=== PATIENT | male | born 1945 | race Caucasian/White ===

== ENCOUNTER 2017-04-23 09:58 | Outpatient (CLI) | payer MEDICARE ==
--- NOTE | 2017-04-23 11:50 | RAD ---
AP AND OBLIQUE VIEWS LEFT RIBS: History: Fall with persistent left sided rib pain. FINDINGS: The patient has had a previous reverse left shoulder arthroplasty. Aortic endovascular stent graft is in place. No evidence of acute left sided rib fractures seen. IMPRESSION: No evidence of acute left rib fracture seen. POS: [facility]
== END 2017-04-23 09:59 | disposition home or self-care (01) ==
LOC: SCSRAD 09:58
PROVIDERS: ATTEND Family Medicine
DX: R07.81 Pleurodynia (principal)
CPT/HCPCS: 36415; 80053; 80061

== ENCOUNTER 2017-06-10 12:18 | Outpatient (CLI) | payer MEDICARE ==
--- NOTE | 2017-06-10 15:37 | CT ---
CTA OF THE CHEST AND ABDOMEN UTILIZING IV CONTRAST AND 3D IMAGING: Comparison: 12-05-16, CT thorax 01-26-16. FINDINGS: The scattered centrilobular and paraseptal emphysema is largely stable. The focal irregular nodular g round glass opacity involving the posterior segment of the right upper lobe measures 2.4 x 1.6 cm whe reas previously it measured 2.0 x 1.4 cm. In 2016, this ground glass nodular opacity measured 2.4 x 1 .6 cm which is roughly stable to the current examination. No new suspicious focal nodule is evident. Shoddy appearing lymph nodes within the mediastinum are largely stable to the most recent examination . One of the largest is seen within the precarinal region measuring 1.3 cm whereas it previously madeline ured 1.1 cm. The subcarinal lymph node measures 1.7 cm which is stable to the prior exam. No calcifie d lymph nodes within the left hilar region. There is a calcified granuloma in the left lower lobe. There is scattered coronary artery and thoracic aortic calcifications. The ascending thoracic aorta measures 3.9 cm which is stable to the prior exam. The aortic arch measu res 3.9 cm which is stable to the prior exam. The endovascular stent originating just posterior to th e left common carotid artery origin is unchanged in position. The aneurysmal dilatation of the descen ding thoracic aorta on image 52 of series 2 is stable, measuring 6.2 x 5.l cm whereas it measured 6.6 x 5.7 cm. This is a [id number] measurement on the current examination as well as a [id number] me asurement on the prior exam dated 12-05-16. The thoracic aorta at the level of the hiatus measures 3.7 cm which is relatively stable to the prior exam. The suprarenal abdominal aorta measures 3.3 cm which is stable to the prior exam. The aorta at the le sherita of the renal arteries measures 2.9 cm which is stable. The infrarenal abdominal aorta just proxim al to the stent measures 3.6 cm which is slightly more prominent than on the prior exam where it madeline ured 3.4 cm. The aneurysm excluded by the infrarenal abdominal aortic stent measures 2.8 cm which is stable. The bi-iliac stent components remain patent. The aneurysmal dilatation of the left common kathy ac artery measures 2.1 cm whereas on the prior it measured 2 cm. The right common iliac artery just d istal to the stent measures 1.6 cm whereas it previously measured 1.6 cm. The external and internal i liac arteries appear widely patent within their visualized course. The celiac artery remains patent. There is mild atherosclerotic narrowing involving the origin of the SMA is stable. There has been interval worsening in the narrowing involving the origin of the left r enal artery, now moderate in severity, best seen on Image 73 of the coronal series and Image 105 of t he sagittal series. There is some mild luminal narrowing involving the proximal right renal and its o rigin. The JOSH artery is excluded and demonstrates some retrograde opacification through collateraliz ation. The gallbladder is surgically absent. Calcified granuloma within the liver appears similar. Right rachelle al cyst is stable. Left kidney and adrenal glands appear within normal limits. No enlarged lymph node s are evident. Small thoracolumbar scoliosis is similar. Scattered degenerative and osteoarthritic ch betty is present. No definite acute osseous abnormality is evident. There are bilateral shoulder repla cements that are partially imaged. IMPRESSION: 1. 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 The abdominal aorta just cephalad to the infrarenal abdominal aortic aneurysm endograft stent now measures 3.6 cm where it pr eviously measured up to 3.4 cm. This is likely within normal limits when accounting for slight differ ences in ambulation and technique. 2. Moderate left renal artery origin stenosis due to partially calcified atherosclerotic plaque. This has progressed since the comparison on 12-05-16. 3. Mild right renal artery origin and proximal right renal artery atherosclerotic irregularity. 4. Stable mild atherosclerotic narrowing involving the origin of the SMA. 5. Stable emphysematous change. 6. The nodular ground glass opacity within the right upper lobe has been stable since 01-26-16. Would recommend a short term CT follow up in January 2018 to evaluate stability. 7. Findings of prior granulomatous disease. 8. Stable right renal cyst. 9. Cholecystectomy. POS: [facility]
[2017-06-10] MEDS ORDERED: Iopamidol 370 76% 100 ML VIAL ONE (17:32)
== END 2017-06-10 12:19 | disposition home or self-care (01) ==
LOC: CT 12:18
PROVIDERS: ATTEND Thoracic Surgery (Cardiothoracic Vascular Surgery)
DX: I71.6 Thoracoabdominal aortic aneurysm, without rupture (principal); I70.1 Atherosclerosis of renal artery; I77.1 Stricture of artery; R91.1 Solitary pulmonary nodule; N28.1 Cyst of kidney, acquired; Z90.49 Acquired absence of other specified parts of digestive tract
CPT/HCPCS: 71275; 74175

== ENCOUNTER 2018-03-05 12:51 | Outpatient (CLI) | payer MEDICARE ==
--- NOTE | 2018-03-05 14:40 | CT ---
NONCONTRAST CT THORAX: Date: 03-05-18 History: Lung nodule. Shortness of breath and COPD. Comparison: CT angiogram of the chest on 06-10-17 and 12-25-16. FINDINGS: Post-surgical changes related to placement of a thoracic aortic stent graft are noted. Ascending thor acic aorta measures 4.4 cm. Greatest transverse dimension of the proximal ascending thoracic aorta me asures 5.1 cm which is similar in size to prior exam. Dense vascular calcifications are again seen in the coronary arteries. There are mediastinal lymph nodes again seen which are overall nonspecific. The larger measured subco rhina lymph node is smaller in size ===== punctate calcification seen which may relate to prior granu lomatous disease. Calcified right hilar lymph nodes are present. Lack of intravenous contrast does li shemar evaluation for lymphadenopathy as well as vascular structures. The spiculated appearing mass in the posterior aspect right upper lobe is again seen and measures 3.4 cm craniocaudal x 2.8 cm transverse x 1.5 cm AP and measured 2.8 cm craniocaudal x 2.4 cm transverse x 1.6 cm AP on study of 06-10-17. There is a punctate nodular density seen within the posterior aspect of the right lower lobe which wa s also seen on prior and may represent a punctate calcified granuloma. There is a calcified granuloma in the superior segment of the left lower lobe. No other noncalcified pulmonary nodule or mass is se en and there is no pleural effusion identified. Post-surgical changes related to cholecystectomy are noted. There is partial visualization of an abdo deandre aortic endograft. There is incomplete imaging of a hypodense cystic lesion in the lower pole ri ght kidney likely related to a cyst. No other interval change from prior exam. Bilateral glenohumeral prostheses are present. IMPRESSION: 1. Mild interval enlargement of the spiculated mass posterior right upper lobe. 2. Punctate nodule in the right lower lobe probably related to a tiny calcified granuloma. There is a stable calcified granuloma in the left lower lobe. 3. Evidence of COPD. 4. Aortic stent grafts involving the thoracic aorta and visualized upper abdominal aorta. Measurement s of the descending thoracic aorta are similar to prior exam. 5. Remainder of incidental findings are as described above. POS: [facility]
== END 2018-03-05 12:52 | disposition home or self-care (01) ==
LOC: CT 12:51
PROVIDERS: ATTEND Internal Medicine
DX: R91.1 Solitary pulmonary nodule (principal); R91.8 Other nonspecific abnormal finding of lung field; J84.10 Pulmonary fibrosis, unspecified; J44.9 Chronic obstructive pulmonary disease, unspecified; N28.89 Other specified disorders of kidney and ureter; Z95.2 Presence of prosthetic heart valve; Z90.49 Acquired absence of other specified parts of digestive tract; Z98.890 Other specified postprocedural states; Z95.828 Presence of other vascular implants and grafts
CPT/HCPCS: 71250

== ENCOUNTER 2018-03-20 08:21 | Day surgery (SDC) | payer MEDICARE ==
[2018-03-19 09:55] VITALS: BMI 24.0
[2018-03-20 08:32] LABS: #Basophils 0.1 thou/uL (0.0-0.2); #Eosinphils 0.2 thou/uL (0.0-0.7); #Lymphocytes 1.2 thou/uL (1.20-3.40); #Monocytes 0.6 thou/uL (0.11-0.59); #Neutrophils 4.4 thou/uL (1.40-6.50); %Basophils 1.1 % (0.0-1.0); %Eosinophils 2.9 % (0.0-10.0); %Lymphocytes 18.8 % (21.0-51.0); %Monocytes 9.1 % (0.0-10.0); %Neutrophils 68.1 % (42.0-75.0); Hemoglobin 13.7 g/dL (14.0-18.0); Mean Corpuscular HGB CONC 32.6 g/dL (32.0-36.0); Mean Corpuscular Hemoglobin 30.5 pg (27.0-31.0); Mean Corpuscular Volume 93.6 fL (78.0-98.0); Mean Platelet Volume 6.8 fL (7.4-10.4); Platelet Count 155 thou/uL (130-400); RBC Distribution Width 13.7 % (11.5-14.5); White Blood Cell (WBC) Count 6.5 thou/uL (4.8-10.8)
[2018-03-20 09:00] LABS: Prothrombin Time 12.9 SEC (12.0-14.7)
[2018-03-20 09:54] VITALS: BP 141/71; TEMP 97.3
[2018-03-20] MEDS ORDERED: Midazolam HCl 2 mg/2 ml Vial ONE (10:04)
[2018-03-20] MEDS ORDERED: Fentanyl 100 MCG/2 ML VIAL ONE (10:04)
[2018-03-20] MEDS ORDERED: Lidocaine 1% PF 5 ML VIAL ONE (10:05)
[2018-03-20] MEDS ORDERED: Sodium Bicarbonate 2.5 MEQ/5 ML VIAL ONE (10:05)
--- NOTE | 2018-03-20 11:55 | RAD ---
INSPIRATORY AND EXPIRATORY CHEST RADIOGRPAH SERIES: INDICATION: Postoperative chest radiograph status post biopsy of right upper lobe mass. FINDINGS: There is no evidence of a significant pneumothorax. Scattered interstitial prominence is seen. Ther e is stable postoperative change of endovascular graft of the thoracic aorta. IMPRESSION: No post procedural pneumothorax of significance is visualized. POS: [facility]
--- NOTE | 2018-03-20 13:31 | CT ---
CT GUIDED PERCUTANEOUS BIOPSY OF A RIGHT UPPER LOBE SPICULATED PULMONARY NODULE WHICH IS SLIGHTLY INC REASED IN SIZE: Technique: The procedure including risks and complications were discussed with the patient and informed consent was obtained. The patient was placed on the CT scan table in the prone position. Limited noncontraste d CT scan was obtained through the level of the mass in the posterior aspect of the right upper lobe. An area was marked and then meticulously prepped and draped in the usual sterile fashion. Skin and subcutaneous tissues were infiltrated with buffered 1% Lidocaine for local anesthesia. Small skin incision was made. A 17 gauge guide needle was advanced followed by three axial [address] images. This was repeated until the needle was placed just within the peripheral aspect of the left upper lobe spiculated lesi on. A total of three 18 gauge core needle biopsy specimens were obtained utilizing coaxial technique. Pathologist was available for evaluation of the specimens and noted atypical cells on the specimen. The needle was removed, and hemostatis was achieved with direct pressure. Post contrast CT images dem onstrate no evidence of a pneumothorax or evidence of hematoma. The patient was transported to radiology nurses holding area for further monitoring. Inspiratory/expi ratory chest x-ray was performed which also did not demonstrate evidence of a pneumothorax. IMPRESSION: 1. Technically successful CT guided percutaneous biopsy of a spiculated nodule/mass in the right uppe r lobe. A total of three 18 gauge core needle biopsy specimens were obtained. Pathology is currently pending. 2. Chronic lung changes and evidence of emphysematous changes. 3. Partial visualization of thoracic aortic stent graft. POS: [facility]
--- NOTE | 2018-03-20 13:57 | RAD ---
FRONTAL CHEST PROJECTION WITH INSPIRATORY AND EXPIRATORY IMAGING: HISTORY: Status post right lung biopsy. Postoperative evaluation. FINDINGS: There is no post procedural pneumothorax. Evidence of CHF with edema is present, similar appearing. IMPRESSION: No evidence of a significant post procedural pneumothorax, status post right lung biopsy. POS: [facility]
== END 2018-03-20 13:25 | disposition home or self-care (01) ==
LOC: CT 08:21
PROVIDERS: ATTEND Internal Medicine
PROC: 0BDC4ZX Extraction of Right Upper Lung Lobe, Percutaneous Endoscopic Approach, Diagnostic (ICD-10-PCS; principal; 2018-03-20)
DX: C34.11 Malignant neoplasm of upper lobe, right bronchus or lung (principal); G47.33 Obstructive sleep apnea (adult) (pediatric); K21.9 Gastro-esophageal reflux disease without esophagitis; J44.9 Chronic obstructive pulmonary disease, unspecified; Z79.82 Long term (current) use of aspirin; Z79.899 Other long term (current) drug therapy
CPT/HCPCS: 32405; 36415; 71045; 77002; 85025; 85610; 85730; 88305; 88313; 88333; 88341; 88342; J2001; J2250; J3010

== ENCOUNTER 2018-04-04 07:44 | Outpatient (CLI) | payer MEDICARE ==
--- NOTE | 2018-04-04 12:39 | PET ---
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 Exam is requested for initial staging. CORRELATION: CT chest from 03/05/2018. TECHNIQUE: PET scanning with CT attenuation correction was performed from the base of the brain through the prox imal thighs following the intravenous administration of 12 millicuries F18 fluorodeoxyglucose in the right antecubital fossa. Imaging was performed after an uptake interval of 51 minutes. FINDINGS: There is hypermetabolic activity in the right upper lobe lung mass, noted on the CT scan, with an SUV of 8.3. No additional hypermetabolic pulmonary nodules are seen. The prominent mediastinal lymph n odes demonstrate no abnormal FDG localization, and have a maximum SUV of 2.2. No deidre hypermetaboli sm is seen in the hilar, axillary, neck, abdomen, or pelvis regions. There are foci of increased uptake at the anterior aspect of the left fifth and sixth ribs, with SUVs of 3.5 and 2.7, respectively. The pattern of uptake suggests these are most likely due to trauma ra ther than metastatic disease. No other hypermetabolic skeletal lesions are seen. No hypermetabolic liver or adrenal lesions are identified. There is physiologic activity in the GI and tracts and heart and in the visualized portions of the brain. CT scan used for attenuation correction demonstrates no evidence of pleural effusions or ascites. Th ere are postop changes of bilateral shoulder arthroplasties. A thoracic aortic stent graft is seen. There is a right-sided renal cyst. An aortoiliac stent graft is also seen. IMPRESSION: 1. Right upper lobe lung malignancy. 2. Increased focal uptake in the left anterior fifth and sixth ribs, most likely due to trauma, thou gh metastatic disease cannot be completely excluded. POS: [facility]
== END 2018-04-04 07:45 | disposition home or self-care (01) ==
LOC: PET 07:44
PROVIDERS: ATTEND Internal Medicine Hematology & Oncology
DX: C34.11 Malignant neoplasm of upper lobe, right bronchus or lung (principal)
CPT/HCPCS: 78815; A9552

== ENCOUNTER 2018-04-10 07:29 | Outpatient (CLI) | payer MEDICARE | END 2018-04-10 07:30 | disposition home or self-care (01) | LOC: CP 07:29 | PROVIDERS: ATTEND Internal Medicine | DX: C34.90 Malignant neoplasm of unspecified part of unspecified bronchus or lung (principal) | CPT/HCPCS: 94010; 94729 ==

== ENCOUNTER 2018-04-21 05:54 | Inpatient (IN) | payer MEDICARE ==
[2018-04-21] MEDS ORDERED: CEFAZOLIN 2 GM/50 ML BAG ONE (06:38)
[2018-04-21 06:44] LABS: Hemoglobin 13.6 g/dL (14.0-18.0); Mean Corpuscular HGB CONC 32.3 g/dL (32.0-36.0); Mean Corpuscular Hemoglobin 30.3 pg (27.0-31.0); Mean Corpuscular Volume 93.8 fL (78.0-98.0); Mean Platelet Volume 7.5 fL (7.4-10.4); Platelet Count 159 thou/uL (130-400); RBC Distribution Width 13.8 % (11.5-14.5); White Blood Cell (WBC) Count 7.2 thou/uL (4.8-10.8)
[2018-04-21 07:01] LABS: Anion Gap 13 mmol/L (10-20); BUN (Urea Nitrogen) 11 mg/dL (8.4-25.7); Calc. Creatinine Clearance 85 mL/min (70-130); Calcium 8.9 mg/dL (7.8-10.44); Carbon Dioxide 25 mmol/L (23-31); Chloride 106 mmol/L (98-107); Estimated GFR-MDRD 87; Glucose 107 mg/dL (83-110); Potassium 3.8 mmol/L (3.5-5.1); Sodium 140 mmol/L (136-145)
[2018-04-21] MEDS ORDERED: Atropine Sulfate 0.4 mg/1 ml Vial ONE (07:14)
[2018-04-21] MEDS ORDERED: Bupivacaine 0.25% HCL 30 ML VIAL ONE (07:14)
[2018-04-21] MEDS ORDERED: Fentanyl/Bupivacaine 100 ML EPIDURAL SCH (07:30)
[2018-04-21] MEDS ORDERED: Naloxone HCl 0.4 mg/ml Vial IV PRN (07:30)
[2018-04-21] MEDS ORDERED: Promethazine HCl 25 MG SUPP PR PRN (07:30)
[2018-04-21] MEDS ORDERED: Bupivacaine 0.25% 10 ML VIAL EPIDURAL PRN (07:30)
[2018-04-21] MEDS ORDERED: Naloxone HCl 0.4 mg/ml Vial IVP PRN (07:30)
[2018-04-21] MEDS ORDERED: HYDROcodone/Acetaminophen 5/325 mg Tablet PO PRN ×3 (07:30→12:38)
[2018-04-21] MEDS ORDERED: diphenhydrAMINE 25 MG CAP PO PRN (07:30)
[2018-04-21] MEDS ORDERED: traMADol HCl 50 MG TAB PO PRN ×2 (07:30)
[2018-04-21] MEDS ORDERED: Zolpidem Tartrate 5 MG TAB PO PRN (07:30)
[2018-04-21] MEDS ORDERED: Promethazine HCl 25 MG/ML VIAL IM PRN (07:30)
[2018-04-21] MEDS ORDERED: diphenhydrAMINE 50 MG/ML VIAL IM PRN (07:30)
[2018-04-21] MEDS ORDERED: Hydrocerin (Eucerin) Cream 120 gm Jar TOP PRN (07:30)
[2018-04-21] MEDS ORDERED: diphenhydrAMINE 50 MG/ML VIAL IVP PRN (07:30)
[2018-04-21] MEDS ORDERED: Betamet Acet/Betamet Na Ph 30 MG/5 ML VIAL ONE (08:03)
--- NOTE | 2018-04-21 10:50 | OP ---
DATE OF PROCEDURE: 04/21/2018 PREOPERATIVE DIAGNOSIS: Right upper lobe lung cancer. PROCEDURE: Right upper lobectomy. SURGEON: Arnaud Shaffer M.D. ANESTHESIA: General. ESTIMATED BLOOD LOSS: 250. PROCEDURE IN DETAIL: After adequate anesthesia had been obtained with a double-lumen endotracheal tu be, the patient was placed in the left lateral decubitus position with padding. Scope was inserted i n the mid axillary line and chest examined. Lung was not fully deflated; however, it was elected at this time to go ahead and perform a thoracotomy and the chest was then entered through the sixth inte rcostal space, as thoracoscopy eubanks this appeared to be the best position for the lobectomy. Upon en tering the chest, fissures were noted to be incomplete in the major fissure and nonexistent in the mi nor fissure. The lung was thick and never did completely compress and become totally atelectatic. P leura was taken down anteriorly, superiorly and posteriorly, taking care to stay away from the phreni c nerve. Pulmonary artery branch was initially controlled with a stapler at which time, it was elect ed to go ahead and divide the right upper lobe bronchus, which was done with a green load after ensur ing good filling of the lower and middle lobe. This allowed better access to the remaining upper lob e branches of the pulmonary artery, which were divided in separate firings. The vein to the upper lo be was then divided with the firing and at that time major and minor fissures were completed with mul tiple green loads. Specimen was removed and multiple dark firm nodes were removed and sent for perma nent section. There was no adenopathy in the R4 region and this was not molested. Two chest tubes w ere then placed and a large pleural flap was mobilized, following which ribs were reapproximated with double stranded catgut sutures x3 in a [id number]-[id number] fashion with each one. Muscle layers, which had been divided were reapproximated, although no muscle was actually divided, it was just mobilized. Subcutaneous tissue and skin were closed in layers and the patient is to be taken to the ICU in gua rded condition.
[2018-04-21] MEDS ORDERED: Dexmedetomidine 200 MCG/2 ML VIAL ONE (10:56)
[2018-04-21] MEDS ORDERED: Fentanyl/Bupivacaine 100 ML EPIDURAL ONE (11:00)
[2018-04-21] MEDS ORDERED: Fentanyl 100 MCG/2 ML VIAL SLOW IVP PRN (12:38)
[2018-04-21] MEDS ORDERED: Nitroglycerin 50 MG/250 ML BOT 250 ML IVPB PRN (12:38)
[2018-04-21] MEDS ORDERED: Phenylephrine 10 MG/NS 250 ML 250 ML IVPB PRN (12:38)
[2018-04-21 12:44] VITALS: BMI 24.5
[2018-04-21] MEDS: Sodium Chloride 0.9% 1,000 ML IV SCH ×2 (13:51→18:56)
[2018-04-21] MEDS: CEFAZOLIN 2 GM/50 ML BAG IVPB SCH ×2 (13:51→21:39)
[2018-04-21] MEDS ORDERED: Glycopyrrolate 0.2 MG/ML 5 ML SYRINGE ONE (15:12)
[2018-04-21] MEDS ORDERED: PROPOFOL 200 MG/20 ML VIAL ONE (15:12)
[2018-04-21] MEDS ORDERED: Lidocaine 1% PF 5 ML VIAL ONE (15:12)
--- NOTE | 2018-04-21 15:27 | RAD ---
RADIOGRAPH CHEST 1 VIEW: Date: 04/21/2018 Time: 12:45 p.m. HISTORY: A 72-year-old male, status post thoracotomy. COMPARISON: 03/20/2018 FINDINGS: There are two new right-sided chest tubes, one at the right base and one with the distal tip overlyin g the medial upper right chest. There is a new, approximately 20% right apical pneumothorax. There is a new focal, moderate sized air space opacity in the right mid lung zone. There are new, more dif fuse interstitial/alveolar infiltrates throughout the left mid and lower lung zones. Again noted is the long endovascular stent graft throughout the posterior aspect of the aortic arch and entire desce nding thoracic aorta. No cardiomegaly. New subcutaneous emphysema in the right chest wall. IMPRESSION: 1. Two new right-sided thoracostomy tubes. 2. Small right apical pneumothorax. 3. New air space density at the right mid lung field. 4. Diffuse new interstitial densities throughout much of the left lung. 5. Stent endograft throughout almost the entire thoracic aorta. SHANITA [] POS: [facility]
--- NOTE | 2018-04-21 16:14 | CON ---
DATE OF CONSULTATION: 04/21/2018 HISTORY OF PRESENT ILLNESS: Mr. Alejo is a 72-year-old male who underwent a lobectomy today for lung mass. He says he is feeling comfortable after surgery. He denies being in any pain. He has not been in the hospital since 2013. At that time, he was seen by Dr. Gonzáles and underwent right biceps tenodesis and right shoulder replacement. 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 PAST SURGICAL HISTORY: Remarkable for cholecystectomy, abdominal aortic aneurysm repair, right inguinal herniorrhaphy and left elbow bursa removal. ALLERGIES: Reports intolerance to FLU SHOTS and STATINS. FAMILY HISTORY: Positive for vascular disease, depression and diabetes. SOCIAL HISTORY: He is a nonsmoker, stopped in 2012. He is a nondrinker, nondrug user. MEDICATIONS: Reviewed. REVIEW OF SYSTEMS: 10 point system review completed; otherwise negative. PHYSICAL EXAMINATION: GENERAL: He is in no distress. He is supine flat in bed. VITAL SIGNS: His heart rate is in the 60s, blood pressure 141/67, respiratory rates in the teens, oximetry is in the high 90s. HEENT: His extraocular movements are intact. NECK: Supple. LUNGS: Clear. HEART: Regular rhythm. S1 and S2 are normal. ABDOMEN: Soft and nontender. EXTREMITIES: No clubbing, cyanosis or edema. LABORATORY DATA: White count 7.2, hemoglobin 13.6, platelets 159,000. Electrolytes are normal. IMPRESSION AND PLAN: Status post lobectomy, clinically stable. Dr. Morales will assume care in the morning. This is a 50-minute consult, with greater than 50% of the time spent on the unit coordinating care. STEPHEN
[2018-04-21 18:28] LABS: Hemoglobin 12.2 g/dL (14.0-18.0)
[2018-04-21] MEDS: Ondansetron PF 4 MG/2 ML Vial IVP PRN (18:54)
[2018-04-21] MEDS ORDERED: Enoxaparin Sodium 40 MG/0.4 ML SYRINGE SC SCH (21:00)
[2018-04-21] MEDS: Atorvastatin Calcium 40 MG TAB PO SCH (21:39)
[2018-04-22] MEDS: CEFAZOLIN 2 GM/50 ML BAG IVPB SCH (05:16)
[2018-04-22] MEDS: Ketorolac Tromethamine 30 MG/ML VIAL IVP PRN ×3 (05:27→17:28)
[2018-04-22] MEDS: HYDROcodone/Acetaminophen 5/325 mg Tablet PO PRN ×4 (05:27→17:29)
[2018-04-22 06:18] LABS: #Eosinphils 0.1 thou/uL (0.0-0.7); #Lymphocytes 0.9 thou/uL (1.20-3.40); #Monocytes 0.7 thou/uL (0.11-0.59); #Neutrophils 7.6 thou/uL (1.40-6.50); %Basophils 0.5 % (0.0-1.0); %Eosinophils 1.6 % (0.0-10.0); %Lymphocytes 9.4 % (21.0-51.0); %Monocytes 7.5 % (0.0-10.0); %Neutrophils 81.1 % (42.0-75.0); Mean Corpuscular Hemoglobin 30.2 pg (27.0-31.0); Mean Corpuscular Volume 94.6 fL (78.0-98.0); Mean Platelet Volume 7.4 fL (7.4-10.4); Platelet Count 149 thou/uL (130-400); RBC Distribution Width 13.9 % (11.5-14.5); Red Blood Cell (RBC) Count 3.65 mill/uL (4.70-6.10); White Blood Cell (WBC) Count 9.4 thou/uL (4.8-10.8)
[2018-04-22 06:29] LABS: Anion Gap 9 mmol/L (10-20); BUN (Urea Nitrogen) 13 mg/dL (8.4-25.7); Calc. Creatinine Clearance 84 mL/min (70-130); Calcium 7.9 mg/dL (7.8-10.44); Carbon Dioxide 25 mmol/L (23-31); Chloride 107 mmol/L (98-107); Estimated GFR-MDRD 83; Glucose 125 mg/dL (83-110); Potassium 4.1 mmol/L (3.5-5.1); Sodium 137 mmol/L (136-145)
[2018-04-22] MEDS: Ondansetron PF 4 MG/2 ML Vial IVP PRN (09:29)
--- NOTE | 2018-04-22 09:38 | RAD ---
PORTABLE AP CHEST XRAY: DATE: 04/22/2018. HISTORY: Post thoracotomy. Followup evaluation. COMPARISON: 04/21/2018. FINDINGS: Two right-sided thoracostomy tubes remain in place. The right apical pneumothorax persists but is sm aller in size. The airspace opacity within the right upper lobe has increased with more dense area o f consolidation now present. Increased interstitial opacities are seen at each lung base and in the left mid lung zone, similar to prior exam. Cardiac silhouette is stable in size. Aortic stent graft is again noted in the thoracic aorta. Bilateral shoulder prostheses are present. Subcutaneous emph ysema is again seen along the right lateral chest. IMPRESSION: 1. Two right-sided thoracostomy tubes overall similar in position with mild interval decrease in rig ht apical pneumothorax. 2. Interval increase in dense opacity/consolidation in the right upper lobe. 3. Increased interstitial densities at each lung base and left mid lung zone similar to prior exam. POS: [facility]
[2018-04-22] MEDS: Bupivacaine 10 ML in Sodium Chloride 0.9% 90 ML EPIDURAL SCH ×2 (09:51→20:38)
--- NOTE | 2018-04-22 10:12 | PRG ---
DATE OF SERVICE: 04/22/2018 SERVICE: Pulmonary Medicine. INTERVAL HISTORY: The patient had a rough night last night. He denies any current fevers or chills. That being said, he is having increasing discomfort. This morning, his blood pressures were margin al. This was associated with a diaphoretic episode, and dizziness. He got a liter of fluid. Modifi cations were made to his epidural. He perked up quite a bit. That being said, his appetite has not improved yet. Otherwise, there were no events overnight. PHYSICAL EXAMINATION: VITAL SIGNS: Afebrile, pulse 70, blood pressure 122/55, respirations 14, saturation 100% on 2 liters nasal cannula. GENERAL: The patient is awake and alert, in no apparent distress. LUNGS: Good air entry on the left. There is reduced air entry on the right. Slightly prolonged exp iratory phase. Rhonchi are present. They clear with cough. HEART: Normal rate, regular. ABDOMEN: Soft, nontender, nondistended. Bowel sounds are positive. MUSCULOSKELETAL: No cyanosis or clubbing. There is no pitting in the bilateral lower extremities. NEUROLOGIC: Grossly nonfocal. LABORATORY DATA: WBC 9.4, hemoglobin 11.0, platelets 149,000. Neutrophil count is 81%. Basic metab olic profile is essentially unremarkable with a creatinine is gently up trending to 0.90. IMAGING: Chest x-ray demonstrates a small apical pneumothorax. There is increasing density in the r ight middle lobe, possibly consistent with interval development of pneumonia. Two right-sided thorac ostomy drains are in good position. ASSESSMENT: 1. Acute hypoxic respiratory failure. 2. Adenocarcinoma of the lung, status post right upper lobectomy, postop day #1. 3. Community-acquired pneumonia, setting up in the right middle lobe. 4. Chronic obstructive pulmonary disease, moderate. DISCUSSION AND PLAN: We will continue our nebulized medications. I will add some antibiotics direct ed at community-acquired pathogens. This is likely aspiration related and I think Zosyn should be ab le to cover whatever is in the lung. I have given him a liter of fluids. He will remain in the ICU for an additional 24 hours. Once his blood pressure stabilized, we will start mobilizing him as tole rated. Pulmonary will certainly continue following.
[2018-04-22] MEDS: Piperacillin/Tazobactam 3.375 GM in Sodium Chloride 0.9% 100 ML IVPB SCH ×2 (11:26→17:27)
[2018-04-22] MEDS: Sodium Chloride 0.9% 1,000 ML IV SCH (13:34)
[2018-04-22] MEDS: Calcium Carbonate 500 MG ChewTAB PO PRN (17:27)
[2018-04-22] MEDS: Atorvastatin Calcium 40 MG TAB PO SCH (20:37)
[2018-04-22] MEDS: Enoxaparin Sodium 40 MG/0.4 ML SYRINGE SC SCH (20:38)
[2018-04-23] MEDS: Calcium Carbonate 500 MG ChewTAB PO PRN (00:15)
[2018-04-23] MEDS: Piperacillin/Tazobactam 3.375 GM in Sodium Chloride 0.9% 100 ML IVPB SCH ×4 (00:15→18:15)
[2018-04-23] MEDS: Ketorolac Tromethamine 30 MG/ML VIAL IVP PRN ×3 (00:20→17:18)
[2018-04-23] MEDS: HYDROcodone/Acetaminophen 5/325 mg Tablet PO PRN ×4 (00:21→20:10)
[2018-04-23] MEDS: Fentanyl 100 MCG/2 ML VIAL SLOW IVP PRN ×3 (01:22→12:38)
[2018-04-23] MEDS: Ondansetron PF 4 MG/2 ML Vial IVP PRN (02:00)
[2018-04-23] MEDS: Sodium Chloride 0.9% 1,000 ML IV SCH (05:03)
[2018-04-23 05:46] LABS: Anion Gap 9 mmol/L (10-20); BUN (Urea Nitrogen) 14 mg/dL (8.4-25.7); Calc. Creatinine Clearance 99 mL/min (70-130); Calcium 8.5 mg/dL (7.8-10.44); Carbon Dioxide 27 mmol/L (23-31); Chloride 105 mmol/L (98-107); Estimated GFR-MDRD Greater than 90; Glucose 128 mg/dL (83-110); Magnesium 1.6 mg/dL (1.6-2.6); Phosphorus 2.3 mg/dL (2.3-4.7); Potassium 4.1 mmol/L (3.5-5.1); Sodium 137 mmol/L (136-145)
[2018-04-23 05:56] LABS: #Eosinphils 0.2 thou/uL (0.0-0.7); #Lymphocytes 0.6 thou/uL (1.20-3.40); #Monocytes 0.5 thou/uL (0.11-0.59); #Neutrophils 7.1 thou/uL (1.40-6.50); %Basophils 0.4 % (0.0-1.0); %Eosinophils 2.4 % (0.0-10.0); %Lymphocytes 6.6 % (21.0-51.0); %Monocytes 6.3 % (0.0-10.0); %Neutrophils 84.3 % (42.0-75.0); Band 3 % (5-11); Hemoglobin 9.9 g/dL (14.0-18.0); Hypochromia SLIGHT = 6-15 cells (100X) (0-5/hpf); Lymphocytes 3 % (21-51); MDiff Complete? YES; Mean Corpuscular HGB CONC 31.6 g/dL (32.0-36.0); Mean Corpuscular Hemoglobin 30.4 pg (27.0-31.0); Mean Corpuscular Volume 96.2 fL (78.0-98.0); Mean Platelet Volume 7.9 fL (7.4-10.4); Monocytes 3 % (0-10); Neutrophil 91 % (42-75); PLT Morphology Comment Appears Decreased; Platelet Count 119 thou/uL (130-400); RBC Distribution Width 13.7 % (11.5-14.5); Red Blood Cell (RBC) Count 3.24 mill/uL (4.70-6.10); White Blood Cell (WBC) Count 8.5 thou/uL (4.8-10.8)
[2018-04-23] MEDS: Bupivacaine 10 ML in Sodium Chloride 0.9% 90 ML EPIDURAL SCH ×2 (07:35→17:18)
--- NOTE | 2018-04-23 08:39 | RAD ---
CHEST 1 VIEW: HISTORY: Thoracotomy. COMPARISON: Radiograph prior day. FINDINGS: There is similar collapse of the right upper lobe. Right side pneumothorax is similar. Two thoracos mejia tubes are similar. Aortic stent graft is similar. Mild edema in the left lung. Bilateral shoulder arthroplasties are in place. IMPRESSION: Unchanged examination of the chest. No significant increase in aeration of the right upper lobe. POS: [facility]
--- NOTE | 2018-04-23 08:59 | RAD ---
ABDOMEN ONE VIEW: History: Abdominal distention. Comparison: None. FINDINGS: There is extensive of extensive endograft material in the visualized aorta and iliac arteries. Nonspecific bowel gas pattern. No suspicious densities in the abdomen or pelvis. No pneumoperitoneum in the supine projection. There is subcutaneous emphysema in the right hemithorax and hemiabdomen. Ri ght sided chest tubes are identified. IMPRESSION: None specific bowel gas pattern. If there is concern, consider CT. POS: [facility]
[2018-04-23] MEDS ORDERED: Sodium Chloride 0.9% 1,000 ML IV SCH (14:07)
--- NOTE | 2018-04-23 14:24 | PRG ---
DATE OF SERVICE: 04/23/2018 SERVICE: Pulmonary Medicine. INTERVAL HISTORY: The patient is really doing quite well from a respiratory standpoint. His pain is under good control. He was picking at his food this morning. He has a little bit of nausea, but has not vomited anything. Ultimately, he feels much improved today compared to yesterday. Otherwise, there has been no interval change to his condition. Nursing reports no overnight events. He is requesting that we allow him to have his Gaviscon at bedside. This is perfectly reasonable to me. PHYSICAL EXAMINATION: VITAL SIGNS: Afebrile, pulse 91, blood pressure 119/71, respirations 13, saturation 95% on room air. GENERAL: The patient is awake and alert, in no apparent distress. LUNGS: Excellent air entry without prolonged expiratory phase. Minimal rubs are present on the right. No prolonged expiratory phase or wheezing is appreciated. HEART: Normal rate, regular. ABDOMEN: Soft, nontender, nondistended. Bowel sounds are positive. MUSCULOSKELETAL: No cyanosis or clubbing. There is no pitting in the bilateral lower extremities. NEUROLOGIC: Grossly nonfocal. CHEST: Chest tube is in place. There is some serosanguineous fluid that is draining, but it has cleared up very nicely. He continues to have minimal persistent air leak on every third to fifth breath. LABORATORY DATA: WBC 8.5, hemoglobin 9.9, platelets 119,000. Neutrophils are 91% on top of 3% bands. Basic metabolic profile, magnesium and phosphorus all fall within the normal limits. IMAGIN. X-ray of the abdomen demonstrates nonspecific bowel gas pattern. 2. CT of the chest demonstrates persistent right apical pneumothorax. I believe it is the right middle lobe that has more extensively opacified today. There are interstitial markings throughout bilateral lung mcneill that are more prominent. Chest tubes x2 are otherwise in good position. Aortic stent is once again noted. ASSESSMENT: 1. Acute hypoxic respiratory failure. 2. Adenocarcinoma of the lung, status post right upper lobectomy, postoperative day 2. 3. Community-acquired pneumonia, in the right middle lobe, suspected. 4. Chronic obstructive pulmonary disease, moderate. DISCUSSION AND PLAN: We will continue our nebulized medications and antibiotics. He will need a total duration of at least 5 days of antibiotics directed at a possible community-acquired pneumonia. I really do not think this is simple atelectasis simply because the right middle lobe appears to be taking up a little bit too much real estate. Negative pressure pulmonary edema of the right middle lobe and surgical complications are other considerations, but the patient appears to be simply too comfortable for either one of these two things to be happening. If at any point, things get worse, we will consider getting a CT of the chest and bronchoscopy. Ultimately, there is visceral pleura invasion, though the margins were clean. As such, he may benefit from adjunct chemotherapy. We will discuss this with him and oncology once he recovers from this surgical procedure. STEPHEN
[2018-04-23] MEDS ORDERED: Magnesium 2 GM/50 ML 2 GM in Premix Bag 1 BAG IVPB SCH (14:45)
[2018-04-23] MEDS: Enoxaparin Sodium 40 MG/0.4 ML SYRINGE SC SCH (20:05)
[2018-04-23] MEDS: Atorvastatin Calcium 40 MG TAB PO SCH (20:05)
[2018-04-24] MEDS: Piperacillin/Tazobactam 3.375 GM in Sodium Chloride 0.9% 100 ML IVPB SCH ×5 (00:07→23:47)
[2018-04-24] MEDS: HYDROcodone/Acetaminophen 5/325 mg Tablet PO PRN ×2 (02:08→20:31)
[2018-04-24] MEDS: Bupivacaine 10 ML in Sodium Chloride 0.9% 90 ML EPIDURAL SCH ×2 (03:27→14:04)
--- NOTE | 2018-04-24 10:04 | RAD ---
SEMI UPRIGHT CHEST ONE VIEW: History: 73-year-old male with history of status post thoracotomy. FINDINGS: Left aortic endostent. Right chest tube is in place with abnormal opacity changes in the right upper chest with small right sided pneumothorax. This is little changed from the prior study. There is some persistent right sided subcutaneous emphysema. The left chest is stable. IMPRESSION: Stable post-operative changes right chest. Continued short term follow up. POS: [facility]
[2018-04-24] MEDS: Fluticasone Propionate Nasal Spray 16 gm Bottle NASAL SCH (10:12)
[2018-04-24] MEDS ORDERED: Midazolam HCl 2 mg/2 ml Vial ONE (11:53)
[2018-04-24] MEDS ORDERED: Lidocaine 1% (PF) 30 ML VIAL ONE (12:09)
[2018-04-24] MEDS: Ondansetron PF 4 MG/2 ML Vial IVP PRN (12:44)
--- NOTE | 2018-04-24 12:59 | PRG ---
DATE OF SERVICE: 04/24/2018 SUBJECTIVE: This morning, awake, alert, and responsive. He is in no distress. His x-ray still show s right upper lung collapse with pneumothorax. OBJECTIVE: VITAL SIGNS: Sats are 94% on 2 liters, blood pressure 139/83, respirations 18, pulse 80. CHEST: Decreased breath sounds, no wheezing. CARDIAC: Normal S1 and S2. No gallops. ABDOMEN: Soft. No masses. IMPRESSION: Status post right upper lobectomy, probably underlying chronic obstructive pulmonary dis ease. PLAN: Continue present treatment. CT drainage. Empiric antibiotics. We will follow.
--- NOTE | 2018-04-24 13:42 | RAD ---
CHEST ONE VIEW: History: FINDINGS: Again noted is extensive abnormal opacification in the right upper chest which certainly could repres ent a component of atelectasis. There is some residual right sided pneumothorax. Two right chest tube s in place. Stable appearance from prior study. The left chest is clear. IMPRESSION: Stable abnormal right upper lung opacity with evidence for small pneumothorax with two right chest tu bes in place. Stable left chest. POS: [facility]
[2018-04-24] MEDS: Acetylcysteine 10% 100 MG/ML 30 ml Vial INH SCH ×2 (14:14→18:17)
[2018-04-24] MEDS ORDERED: Lidocaine 2% Jelly 5 ML TUBE ONE (15:07)
[2018-04-24] MEDS: Enoxaparin Sodium 40 MG/0.4 ML SYRINGE SC SCH (20:32)
[2018-04-24] MEDS: Atorvastatin Calcium 40 MG TAB PO SCH (20:32)
[2018-04-25] MEDS: Acetylcysteine 10% 100 MG/ML 30 ml Vial INH SCH ×4 (00:05→19:28)
[2018-04-25] MEDS: Bupivacaine 10 ML in Sodium Chloride 0.9% 90 ML EPIDURAL SCH ×3 (00:27→22:24)
[2018-04-25] MEDS: Piperacillin/Tazobactam 3.375 GM in Sodium Chloride 0.9% 100 ML IVPB SCH ×4 (05:40→23:06)
[2018-04-25] MEDS: Fluticasone Propionate Nasal Spray 16 gm Bottle NASAL SCH (08:25)
--- NOTE | 2018-04-25 10:00 | RAD ---
PORTABLE CHEST: HISTORY: Status post thoracotomy. COMPARISON: Prior day's study. FINDINGS: Two right chest tubes remain in place. The right apical pneumothorax is again identified. Opacifica tion of the right upper lobe is a stable finding. Aortic stent is again noted. The left lung remain s clear. IMPRESSION: Stable exam. POS: [facility]
[2018-04-25] MEDS ORDERED: Bisacodyl 10 MG SUPP PR PRN (10:11)
[2018-04-25] MEDS ORDERED: Ondansetron PF 4 MG/2 ML Vial IVP PRN (10:11)
[2018-04-25] MEDS ORDERED: Milk Of Magnesia 30 ML UDCUP PO PRN (10:11)
[2018-04-25] MEDS ORDERED: Mineral Oil ENEMA PR PRN (10:11)
[2018-04-25] MEDS ORDERED: HYDROcodone/Acetaminophen 5/325 mg Tablet PO PRN (10:11)
--- NOTE | 2018-04-25 12:33 | OP ---
DATE OF PROCEDURE: 04/24/2018 PROCEDURE: bronchoscopy. INDICATIONS: Right upper lung atelectasis following lobectomy. PROCEDURE IN DETAIL: After informed consent, the patient was given 1 mg Versed IV. His posterior ph arynx was sprayed with Cetacaine spray . The flexible Olympus video bronchoscope 2 mm was passed using a bite block. Upon entering the vocal cords, he proceeded to vomit a large volume of yellow vomitus. Bronchoscope was removed. He was suc tioned, cleared his secretions. Additional Cetacaine was sprayed. Bite block was placed agai n. 10 mL of 1% lidocaine was instilled into the posterior pharynx. Bronchoscope was repassed again and he proceeded to vomit and cough again. He did cough a large volume of thick mucus. His oxygen saturation never decreased 96%-97%. Third attempt to repass the bronchoscope after additi onal 5 mL of 1% Xylocaine was instilled into his posterior pharynx. Once again, the patient became a gitated, coughed, and gagged. He was unable to tolerate the bronchoscopy. We were able to visualize the distal trachea, which was normal, but was unable to see the right lung. The procedure was terminated. If he is going to require a rebronchoscopy, he is going to require add itional sedation for the bronchoscopy. Bronchoscopy will be held at this time. A chest x-ray is being ordered.
--- NOTE | 2018-04-25 15:18 | PRG ---
DATE OF SERVICE: 04/25/2018 SUBJECTIVE: Mr. Alejo is doing better today. He says he is feeling better. OBJECTIVE: VITAL SIGNS: He is afebrile, heart rate is 88, respiratory rate 14, oximetry is 94% on room air, blo od pressure 109/60. LUNGS: Clear. HEART: Regular rhythm. ABDOMEN: Soft and nontender. EXTREMITIES: Without edema. IMAGING: Chest radiograph was reviewed. It is unchanged. A tiny right apical pneumothorax is seen. ASSESSMENT AND PLAN: He had visceral pleural invasion of this tumor, but no lymphovascular invasion. No lymph nodes were positive. It is staged as a T2 N0 adenocarcinoma, PD-L1 was 22%. EGFR mutation was not detected. ALK FISH was negative and BRAF mutation was negative. He appears stable to move out of the Critical Care Unit at this time. He apologized for vomiting during bronchoscopy yesterday. We will continue supportive care since he clinically appears to be stable and not reattempt bronchoscopy for now.
[2018-04-25] MEDS: Acetaminophen 325 MG TAB PO PRN (19:53)
[2018-04-25] MEDS: Atorvastatin Calcium 40 MG TAB PO SCH (20:28)
[2018-04-25] MEDS: Docusate 100 MG CAP PO SCH (20:28)
[2018-04-25] MEDS: Enoxaparin Sodium 40 MG/0.4 ML SYRINGE SC SCH (20:28)
[2018-04-25] MEDS: guaiFENesin ER 600 MG TAB PO SCH (20:59)
[2018-04-25] MEDS: HYDROcodone/Acetaminophen 5/325 mg Tablet PO PRN (23:04)
[2018-04-26] MEDS: Acetylcysteine 10% 100 MG/ML 30 ml Vial INH SCH ×5 (00:05→23:44)
[2018-04-26] MEDS: HYDROcodone/Acetaminophen 5/325 mg Tablet PO PRN (04:43)
[2018-04-26] MEDS: Piperacillin/Tazobactam 3.375 GM in Sodium Chloride 0.9% 100 ML IVPB SCH ×4 (05:22→23:54)
[2018-04-26] MEDS: guaiFENesin ER 600 MG TAB PO SCH ×2 (08:31→20:40)
[2018-04-26] MEDS: Docusate 100 MG CAP PO SCH ×2 (08:31→20:41)
[2018-04-26] MEDS: Fluticasone Propionate Nasal Spray 16 gm Bottle NASAL SCH (08:32)
--- NOTE | 2018-04-26 11:00 | RAD ---
CHEST 1 VIEW: HISTORY: Post lobectomy. COMPARISON: Radiograph of prior day. FINDINGS: Aortic stent graft is similar. Mild improved aeration of the right upper lobe. The right sided pneu mothorax is starting to fill with fluid. Thoracostomy tube is similar in position. Low-grade edema in the left lung. IMPRESSION: Mild interval improvement in aeration remainder of the right upper lobe with size decreasing pneumoth orax which is starting to fill with fluid. POS: [facility]
--- NOTE | 2018-04-26 16:25 | PRG ---
DATE OF SERVICE: 04/26/2018 SUBJECTIVE: Say Alejo says he is doing much better. His chest tube is to water seal. OBJECTIVE: VITAL SIGNS: He is afebrile, heart rate is 85, respiratory rate is 16, oximetry is 94% on room air, blood pressure 122/63. LUNGS: Clear. He has equal breath sounds. IMAGING: His right upper lobe looks better on chest radiograph today, perhaps the mucolytics are hel ping. IMPRESSION AND PLAN: 1. Atelectasis and mucus plugging. 2. Status post resection of a T2 M0 adenocarcinoma via lobectomy, clinically stable. Hopefully, he will be a candidate for discharge soon.
[2018-04-26] MEDS: Enoxaparin Sodium 40 MG/0.4 ML SYRINGE SC SCH (20:40)
[2018-04-26] MEDS: Acetaminophen 325 MG TAB PO PRN (20:41)
[2018-04-26] MEDS: Atorvastatin Calcium 40 MG TAB PO SCH (20:41)
[2018-04-26] MEDS: Bupivacaine 10 ML in Sodium Chloride 0.9% 90 ML EPIDURAL SCH (20:58)
[2018-04-27] MEDS: Piperacillin/Tazobactam 3.375 GM in Sodium Chloride 0.9% 100 ML IVPB SCH ×4 (05:42→23:18)
[2018-04-27] MEDS: Bupivacaine 10 ML in Sodium Chloride 0.9% 90 ML EPIDURAL SCH (06:50)
[2018-04-27] MEDS: Acetylcysteine 10% 100 MG/ML 30 ml Vial INH SCH ×3 (07:32→19:19)
[2018-04-27] MEDS: guaiFENesin ER 600 MG TAB PO SCH ×2 (09:02→20:30)
[2018-04-27] MEDS: Docusate 100 MG CAP PO SCH ×2 (09:02→20:31)
[2018-04-27] MEDS: Fluticasone Propionate Nasal Spray 16 gm Bottle NASAL SCH (09:02)
--- NOTE | 2018-04-27 09:50 | RAD ---
CHEST 1 VIEW: HISTORY: Thoracotomy. COMPARISON: Radiograph of prior day. FINDINGS: There is continued filling of the right hemithorax with fluid. Two thoracostomy tubes are in place. Subcutaneous emphysema is similar. Improved aeration in the right middle lobe. The left lung is relatively clear. IMPRESSION: Interval progressive improved aeration right middle lobe. POS: [facility]
[2018-04-27 14:13] LABS: Bilirubin Negative (Negative); Blood, Urine Moderate (Negative); Clarity TURBID (Clear); Glucose, Urine (Dipstick) Negative (Negative); Leukocyte Negative (Negative); Nitrite Negative (Negative); Protein, Urine (Dipstick) 30 mg/dL (Neg-Trace); Specific Gravity, Urine 1.014 (1.002-1.036)
[2018-04-27 14:15] LABS: Bacteria/HPF None Seen HPF (None Seen); Hyaline Casts/LPF 4-6 HYALINE CAST LPF (0-3 Hyaline); Pathc Cast-AUWi Flag 0.87 (0-2.49); RBC/HPF GREATER THAN 50-TNTC HPF (0-3); Squamous Epithelial 0-3 HPF (0-3)
[2018-04-27 14:20] LABS: Renal Epithelial None Seen HPF (0-3); Transitional Epithelial NONE SEEN HPF (0-3)
[2018-04-27] MEDS: Atorvastatin Calcium 40 MG TAB PO SCH (20:30)
[2018-04-27] MEDS: Acetaminophen 325 MG TAB PO PRN (20:30)
[2018-04-27] MEDS: Enoxaparin Sodium 40 MG/0.4 ML SYRINGE SC SCH (20:31)
--- NOTE | 2018-04-27 21:00 | PRG ---
DATE OF SERVICE: 04/27/2018 OBJECTIVE: VITAL SIGNS: He is afebrile, heart rate 87, respiratory rate 20, oximetry is 93 on room air, blood p ressure 117/60. LUNGS: Chest tubes to water seal. Chest tube only put out 60 mL overnight. Exam is otherwise uncha nged. IMPRESSION: Status post lobectomy for T2 M0 adenocarcinoma, probably close to having this chest tube removed.
--- NOTE | 2018-04-27 21:07 | EKG ---
Test Reason : PREOP Blood Pressure : / mmHG Vent. Rate : 070 BPM Atrial Rate : 070 BPM P-R Int : 300 ms QRS Dur : 090 ms QT Int : 386 ms P-R-T Axes : 052 -47 044 degrees QTc Int : 416 ms Sinus rhythm with 1st degree A-V block Left axis deviation Abnormal ECG When compared with ECG of 16-MAY-2015 09:50, No significant change was found Confirmed by ANNA MARIE MCHUGH (2) on 04/27/2018 9:07:32 PM Referred By: RITCHIE Confirmed By:ANNA MARIE MCHUGH
[2018-04-28] MEDS: Acetylcysteine 10% 100 MG/ML 30 ml Vial INH SCH ×2 (00:14→06:36)
[2018-04-28] MEDS: Piperacillin/Tazobactam 3.375 GM in Sodium Chloride 0.9% 100 ML IVPB SCH (05:13)
[2018-04-28] MEDS: Docusate 100 MG CAP PO SCH (08:42)
[2018-04-28] MEDS: Fluticasone Propionate Nasal Spray 16 gm Bottle NASAL SCH (08:42)
[2018-04-28] MEDS: guaiFENesin ER 600 MG TAB PO SCH (08:42)
--- NOTE | 2018-04-28 09:19 | RAD ---
FRONTAL VIEW CHEST: Comparison: Previous day. Indication: Status post thoracotomy. Follow up. FINDINGS: Stable post-operative chest with right side thoracostomy tubes again seen and opacification of the up per to mid right hemithorax. No significant interval change otherwise depicted. A small volume of ple ural air remaining within the right hemithorax is stable consistent with a stable small volume right pneumothorax. IMPRESSION: Stable post-operative chest, with persistent small volume right pneumothorax and persistent opacifica tion of the upper to mid right hemithorax. Continued follow up is warranted. POS: [facility]
--- NOTE | 2018-04-28 10:13 | PRG ---
DATE OF SERVICE: 04/28/2018 SERVICE: Pulmonary Medicine INTERVAL HISTORY: The patient is doing really well from a respiratory standpoint. He is breathing comfortably. He had his chest tubes out this morning. He has recovered very nicely from his procedure. He still has a little bit of pleuritic chest discomfort that is worse whenever he takes a deep breath. He is coughing purulent sputum. Otherwise, he is feeling a little better day by day. PHYSICAL EXAMINATION: VITAL SIGNS: Afebrile, pulse 86, blood pressure 129/72, respirations 17, saturation 99% on room air. GENERAL: The patient is awake, alert, in no apparent distress. LUNGS: Excellent air entry. There is no prolonged expiratory phase or wheezing present. Rhonchi are there, but clear with cough. They are more predominantly displayed on the right. HEART: Normal rate, regular. ABDOMEN: Soft, nontender, nondistended. Bowel sounds are positive. MUSCULOSKELETAL: No cyanosis or clubbing. No pitting in the bilateral lower extremities. NEUROLOGIC: Grossly nonfocal. IMAGING: Chest x-ray demonstrates 2 right-sided thoracostomy drains in good position. There is no evidence of a pneumothorax. What is now the right middle lobe has an infiltrate that is clearing very nicely consistent with pneumonia. ASSESSMENT: 1. Acute hypoxic respiratory failure, resolved. 2. Adenocarcinoma of the lung with invasion of visceral pleura, status post right upper lobectomy, postoperative day #7. 3. Community-acquired pneumonia in the right middle lobe, resolving. 4. Chronic obstructive pulmonary disease, moderate, prior to lobectomy. DISCUSSION AND PLAN: The patient will be continued on his home inhalers on discharge from the hospital. We will discontinue the Zosyn, and put him on Augmentin. From my perspective, he is stable for transition out of the hospital. I do not think this is atelectasis because it is simply taking up too much real estate. This is most likely an infiltrate that developed in the perioperative period. We will make certain that he gets a chest x-ray in the outpatient setting in roughly 6 weeks to verify this infiltrate goes away. STEPHEN
[2018-04-28] MEDS ORDERED: Amoxicillin/Potassium Clav 875 MG TAB PO SCH (10:45)
[2018-04-28 11:01] VITALS: BP 115/68; TEMP 98.6
--- NOTE | 2018-04-28 13:17 | DIS ---
HOSPITAL COURSE: This gentleman was admitted for resection of a right upper lobe mass, which was per formed through a muscle-sparing right thoracotomy. He had incompletely incomplete fissure between th e upper and middle lobe and this was stapled. Tumor returned 2.6 cm moderately differentiated adenoc arcinoma with visceral pleural involvement and 8 negative lymph nodes. Postoperative course was sign ificant for infiltrate on the operated side with attempted bronchoscopy on 04/24/2018 that was not co mpleted. His x-ray gradually improved with aeration. He was walking in the halls without difficulty and will be discharged on his home medicines plus [place] 7.5/325 as well as Augmentin to complete a 1 0-day course of antibiotics. Discharge and followup instructions have been given.
--- NOTE | 2018-04-29 11:47 | PQF ---
JOEL RAE JAMES M MD [id number] CLINICAL DOCUMENTATION CLARIFICATION FORM: POST DISCHARGE DATE: 04/29/2018 ATTN: Dr. Shaffer Please exercise your independent, professional judgment in responding to the clarification form. Clinical indicators are provided on the bottom of this form for your review Please check appropriate box(s): [ y ] Atelectasis is a postoperative complication related to current surgery [ ] Atelectasis is not a postoperative complication related to current surgery [ ] Acute hypoxic respiratory failure is a postoperative complication related to current surgery [ y ] Acute hypoxic respiratory failure is not a postoperative complication related to current surgery [ ] Community acquired pneumonia is a postoperative complication related to current surgery [ y ] Community acquired pneumonia is not a postoperative complication related to current surgery [ y ] Pneumothorax is a postoperative complication related to current surgery [ ] Pneumothorax is not a postoperative complication related to current surgery [ ] Other diagnosis (please specify) [ ] Unable to determine In addition, please specify: Present on Admission (POA): [ ] Yes [ y ] No [ ] Unable to determine CLINICAL INDICATORS - SIGNS / SYMPTOMS / LABS (per progress notes/bronchoscopy report) CT chest demonstrates persistent right apical pneumothorax.. Infiltrate. Diaphoretic and dizziness. Right upper lung atelectasis following lobectomy. RISK FACTORS (per operative reports) Status post right upper lobectomy for lung cancer 04/21. Vomiting and coughing during attempted bronchoscopy TREATMENT: (per progress notes/bronchoscopy) Augmentin. Home inhalers. Nebulizer. IV Fluids Attempted bronchoscopy. (This form is maintained as a part of the permanent medical record) 2014 [employer] All Rights Reserved Zenaida [email or web address] [phone] [email or web address]
== END 2018-04-28 11:11 | disposition home or self-care (01) | DRG 163 ==
LOC: SURG A 05:54 → CCU 12:20 → 2NO 04-25 13:41
PROVIDERS: ADMIT Thoracic Surgery (Cardiothoracic Vascular Surgery); ATTEND Thoracic Surgery (Cardiothoracic Vascular Surgery)
PROC: 0BTC0ZZ Resection of Right Upper Lung Lobe, Open Approach (ICD-10-PCS; principal; 2018-04-21)
PROC: 0WJ Anatomical Regions, General, Inspection (ICD-10-PCS; 2018-04-24)
DX: C34.11 Malignant neoplasm of upper lobe, right bronchus or lung (principal); J96.01 Acute respiratory failure with hypoxia; J18.9 Pneumonia, unspecified organism; J95.89 Other postprocedural complications and disorders of respiratory system, not elsewhere classified; J98.11 Atelectasis; J44.0 Chronic obstructive pulmonary disease with (acute) lower respiratory infection; J95.811 Postprocedural pneumothorax; E78.5 Hyperlipidemia, unspecified; Y83.6 Removal of other organ (partial) (total) as the cause of abnormal reaction of the patient, or of later complication, without mention of misadventure at the time of the procedure; Y92.239 Unspecified place in hospital as the place of occurrence of the external cause; Z87.891 Personal history of nicotine dependence; Z79.899 Other long term (current) drug therapy
CPT/HCPCS: 36415; 36430; 71045; 74018; 80048; 81001; 83735; 84100; 85025; 85027; 86850; 86900; 86901; 87086; 88307; 88309; 88313; 88331; 89220; 93005; 93010; 94640; J0461; J0702; J1200; J1642; J1650; J1885; J2001; J2250; J2405; J2543; J2704; J3010; J3490; J7050; J7608; J7620; S0020

== ENCOUNTER 2018-05-13 14:08 | Outpatient (CLI) | payer MEDICARE ==
--- NOTE | 2018-05-13 16:26 | RAD ---
TWO VIEWS OF THE CHEST: 05/13/18 COMPARISON: 04/28/18 HISTORY: Malignant neoplasm of the upper bronchus. FINDINGS: Single view of the chest shows a normal sized cardiomediastinal silhouette. A stent graft is seen in the aorta. A right sided chest tube has been removed. There is a small to moderate right apical pneum othorax. A small amount of pleural fluid is also seen on the right. IMPRESSION: Status post chest tube removal with small right apical pneumothorax. POS: [facility]
== END 2018-05-13 14:09 | disposition home or self-care (01) ==
LOC: RAD 14:08
PROVIDERS: ATTEND Thoracic Surgery (Cardiothoracic Vascular Surgery)
DX: C34.10 Malignant neoplasm of upper lobe, unspecified bronchus or lung (principal); J95.811 Postprocedural pneumothorax
CPT/HCPCS: 36415; 71046; 80053; 80061

== ENCOUNTER 2018-11-10 09:20 | Outpatient (CLI) | payer MEDICARE ==
--- NOTE | 2018-11-10 09:40 | RAD ---
2 views of the chest: 11/10/2018 COMPARISON: 05/13/2018 HISTORY: Shortness of breath, history of lung cancer FINDINGS: The thoracic aorta is tortuous. There is stent graft material overlying the aortic arch and descending thoracic aorta. Bilateral shoulder arthroplasties are in place. There is increased linear interstitial density and pu lmonary hyperinflation suggesting COPD, stable. There is dense opacity in the right lung apex superiorly and medially, which could represent loculate d pleural fluid and/or pleural thickening. This is new when compared to the prior examination. This is felt to likely represent fluid filling a post surgical cavity but further assessment via CT examin ation is advised given change since the prior examination. IMPRESSION: Increased density in the right lung apex as detailed above. Recommend CT examination for full assessment. CODE T
== END 2018-11-10 09:21 | disposition home or self-care (01) ==
LOC: RAD 09:20
PROVIDERS: ATTEND Internal Medicine
DX: R06.00 Dyspnea, unspecified (principal); J98.4 Other disorders of lung
CPT/HCPCS: 71046

== ENCOUNTER 2018-12-29 09:41 | Outpatient (CLI) | payer MEDICARE ==
--- NOTE | 2018-12-29 12:12 | CT ---
CT THORAX WITH IV CONTRAST: Date: 12/29/18 INDICATION: History of lung cancer and partial right pneumonectomy. CONTRAST: 70 mL [id number]. COMPARISON: PET CT dated 04/04/18. FINDINGS: Since the comparison examination, there has been interval performance of a right upper lobectomy. The re is prominent scarring involving the right pleural parenchymal space of the right upper hemithorax with an area of internal cavitation adjacent to anastomotic suture line in the right upper hemithorax . The cavitation measures approximately 2.0 cm. There is prominent soft tissue nodularity extending down into the right minor fissure. There is also some soft tissue nodularity seen along the medial margin of the right middle lobe with some subsegmen montserrat volume loss. There is severe emphysema. There is a calcified granuloma in the superior segment of the left lower l obe. Small sub-4 mm nodule in the left upper lobe on image 58 of series 3, stable since 2017. Small c alcified granuloma seen within the right lower lobe. There is postsurgical change of an endograft stent replacement of the thoracic aorta. There is a prominent 3.8 cm cyst involving the right kidney. The gallbladder is surgically absent. Th ere is partial visualization of an aortic endograft involving the infrarenal abdominal aorta. There is scattered degenerative and osteoarthritic change. There are bilateral shoulder replacements. There is a 1.4 cm precarinal lymph node present that is stable to the comparison CT dated 03/05/18. M ildly prominent 1.0 cm aortocaval lymph node is stable. There is some fluid density seen within the e sophagus that may reflect reflux or dysmotility. IMPRESSION: 1. Interval right upper lobe lobectomy. There is some prominent pleural parenchymal scarring involvi ng the right upper hemithorax, as well as the anterior lower right hemithorax. There is an area of ca vitation within the scar-like soft tissue density within the pleural space of the right upper lobe wh ich is nonspecific. Close CT follow-up is recommended. This may be postoperative in nature reflecting small residual postoperative pneumothorax. Recurrent cavitating malignancy in the pleural space and is felt to be less likely, but cannot be excluded. 2. Stable severe emphysema. 3. Slight interval enlargement of precarinal mediastinal lymph node now measuring 1.4 cm, previously measuring 1.1 cm. Enlarged AP window lymph nodes are stable. 4. Some layered fluid density within the esophagus may reflect dysmotility or reflux. 5. Findings of aortic aneurysm repair of the thoracic aorta without evidence of significant stenosis . 6. Right renal cyst. 7. Other chronic findings as above. POS: [facility]
[2018-12-29] MEDS ORDERED: Iopamidol 370 76% 100 ML VIAL ONE (16:18)
== END 2018-12-29 09:42 | disposition home or self-care (01) ==
LOC: BICCT 09:41
PROVIDERS: ATTEND Internal Medicine
DX: R91.1 Solitary pulmonary nodule (principal); J44.9 Chronic obstructive pulmonary disease, unspecified; R59.0 Localized enlarged lymph nodes; J43.9 Emphysema, unspecified; N28.1 Cyst of kidney, acquired; J94.8 Other specified pleural conditions; J98.4 Other disorders of lung; Z90.2 Acquired absence of lung [part of]; Z90.49 Acquired absence of other specified parts of digestive tract
CPT/HCPCS: 71260; 82565; Q9967

== ENCOUNTER 2019-01-14 08:12 | Outpatient (CLI) | payer MEDICARE ==
--- NOTE | 2019-01-14 11:42 | MRI ---
MRI LUMBAR SPINE WITH AND WITHOUT CONTRAST: HISTORY: Lumbar radiculopathy. Acute back pain. COMPARISON: None. TECHNIQUE: A lumbar spine MRI is performed with and without intravenous Gadolinium administration. Multisequent ial, multiplanar imaging is performed. FINDINGS: Overall, there is appropriate T1 marrow signal intensity of the visualized vertebrae. There are type I and type II modic changes at the L2-L3 and L4-L5 and, to a lesser extent, at the L1-L2 disk spaces . There is 2.7 mm of retrolisthesis of L1 upon L2 and 3.3 mm of retrolisthesis of L2 upon L3. No significant STIR hyperintensity to suggest vertebral body edema or ligamentous injury. Post contrast images do not demonstrate any abnormal enhancement with regard to the thecal sac. Ther e is no abnormal enhancement into the cauda equina or conus medullaris. There is no abnormal enhance ment with regard to the vertebral bodies. Appropriate signal intensity of the paraspinal muscles. Exophytic T2 hyperintensity emanating from the right renal cortex, likely representing an incompletel y evaluated cyst. T12-L1: Small left and right paracentral disk bulges. No significant central canal stenosis. The n eural foramina are mildly narrowed bilaterally. L1-L2: Severe loss of disk space height. Broad-based disk bulge with a right subarticular protrusio n. There is mass effect and partial obscuration of the traversing right L2 nerve root. Minimal liga mentum flavum thickening and facet hypertrophy. Overall, mild central canal stenosis. Moderate to s evere right and moderate left neural foraminal narrowing. L2-L3: Desiccation with moderate loss of disk space height. Broad-based disk bulge, ligamentum flav um thickening, and facet hypertrophy result in mild to moderate central canal stenosis. Moderate rig ht and moderate to severe left foraminal narrowing. L3-L4: Desiccation with moderate loss of disk space height. There is a broad-based disk bulge, liga mentum flavum thickening, and facet hypertrophy. Overall, there is moderate to severe central canal stenosis. There is abnormal signal intensity in the left subarticular zone, obscuring the traversing left L4 nerve root. Abnormal signal appears to be a combination of granulation tissue, disk materia l, and a small synovial cyst. Moderate right and moderate to severe left foraminal narrowing. L4-L5: Moderate loss of disk space height. Broad-based disk bulge, ligamentum flavum thickening, an d facet hypertrophy result in moderate central canal stenosis. There is narrowing of the left subart icular zone with partial obscuration traversing the left L5 nerve root secondary to disk material and posterior element hypertrophy. Moderate right and severe left foraminal narrowing. L5-S1: Desiccation with moderate loss of disk space height. There is a central disk protrusion that abuts the thecal sac. Disk material also encroaches upon both subarticular zones. Mass effect with out obscuration of the traversing S1 nerve root. Moderate right and mild left foraminal narrowing. IMPRESSION: 1. Degenerative changes of the lumbar spine as described above. There is abnormal signal intensity in the left subarticular zone at L3-L4 and, to a lesser extent, at L4-L5. Abnormal signal is presume d to affect the traversing left L4 and L5 nerve roots. 2. Significant neural foraminal narrowing, as detailed above. POS: [facility]
== END 2019-01-14 08:13 | disposition home or self-care (01) ==
LOC: SCSMRI 08:12
PROVIDERS: ATTEND Neurological Surgery
DX: M47.26 Other spondylosis with radiculopathy, lumbar region (principal); M48.061 Spinal stenosis, lumbar region without neurogenic claudication
CPT/HCPCS: 72158

== ENCOUNTER 2019-03-19 09:32 | Outpatient (CLI) | payer MEDICARE ==
--- NOTE | 2019-03-19 10:41 | RAD ---
CHEST 2 VIEWS: HISTORY: Dyspnea. Chronic cough. FINDINGS: There is very severe bilateral interstitial and linear and reticulonodular parenchymal changes bilate rally, evidence for nonspecific chronic interstitial lung disease. Marked stable right apical pleura l thickening. Marked atherosclerotic ectatic changes of the aorta with an associated endostent. No new confluent pneumonia, overt edema, or significant pleural effusion. IMPRESSION: Severe chronic changes, evidence for nonspecific interstitial lung disease. Endostent stabilizing a markedly ectatic thoracic aorta. No overt acute process. If the patient has persistent or worsening nonresolving symptoms, a short-term followup study might be of benefit. POS: [facility]
== END 2019-03-19 09:33 | disposition home or self-care (01) ==
LOC: SCSRAD 09:32
PROVIDERS: ATTEND Family Medicine
DX: R05 Cough (principal); Z90.2 Acquired absence of lung [part of]
CPT/HCPCS: 71046

== ENCOUNTER 2019-05-18 09:30 | Outpatient (CLI) | payer MEDICARE ==
--- NOTE | 2019-05-18 10:26 | CT ---
CT CHEST WITH CONTRAST CLINICAL INDICATION: Non-small cell lung cancer. Pulmonary nodule. Part of right lung removed, COPD. COMPARISON: 12/29/2018 FINDINGS: Aorta: Vascular calcifications are again seen in the thoracic aorta. Aortic stent graft is also again present. Vascular calcifications are noted in the coronary arteries. Lungs: Again noted are emphysematous changes throughout the lungs bilaterally. Postsurgical changes r elated to right upper lobectomy are noted with pleural and parenchymal changes within the posterior aspect right upper lobe and in the right lung apex. The parenchymal lung changes with associated cavi tation is again seen. The soft tissue density has improved, but the area of cavitation is now larger in size measuring 4.3 cm and previously measured 2 cm There is greater parenchymal lung changes with patchy and reticulonodular densities seen in the right lower lobe adjacent to the areas of emphysematous change which could be related to infectious or inflammatory process. Mild hazy densities are seen on the left which are similar to the prior study a nd probably related to chronic lung changes. No new discrete pulmonary nodule or mass is not appreciated. Calcified granuloma superior segment left lower lobe is again seen. Mediastinum: A mildly enlarged subcarinal lymph node is seen measuring 1.4 cm in short axis dimension . A few additional lymph nodes are seen in prevascular space which are mildly prominent but not enlarged by CT size criteria. There is soft tissue density seen in a subcarinal location measuring 2. 1 cm in short axis dimension probably related to enlarged lymph node. The soft tissue density is similar to prior exam. Calcified hilar and subcarinal lymph nodes are present. Thyroid gland: Where visualized has a normal appearance. Osseous structures: Degenerative changes are again seen in the spine. Postsurgical changes each gleno humeral joint related to bilateral glenohumeral prostheses. No suspicious lytic or sclerotic osseous lesions are identified. Chest wall: No abnormality visualized. Upper abdomen: Postsurgical changes related to cholecystectomy are noted. There is incomplete visuali zation of a hypodense lesion right kidney likely due to a cyst. IMPRESSION: 1. Postsurgical changes related to right upper lobectomy with findings likely due to pleural and pare nchymal scarring in the right upper hemithorax. The area of soft tissue density seen on prior exam has mildly improved, but the area of cavitation has enlarged. 2. Emphysematous changes bilaterally. There are now greater parenchymal densities as well as reticulo nodular densities seen primarily in the right lower lobe worrisome for interval development of infectious or inflammatory process. Follow-up examination is recommended. 3. Enlarged precarinal and subcarinal lymph nodes. 4. Small amount of debris within the lower esophagus which could be related to esophageal reflux. 5. Postsurgical changes related to endograft repair of a thoracic aortic aneurysm.
== END 2019-05-18 09:31 | disposition home or self-care (01) ==
LOC: BICCT 09:30
PROVIDERS: ATTEND Internal Medicine
DX: J44.9 Chronic obstructive pulmonary disease, unspecified (principal); Z85.118 Personal history of other malignant neoplasm of bronchus and lung; J43.9 Emphysema, unspecified; R59.0 Localized enlarged lymph nodes; J98.4 Other disorders of lung; Z98.890 Other specified postprocedural states
CPT/HCPCS: 71260

== ENCOUNTER 2019-06-11 08:55 | Outpatient (CLI) | payer MEDICARE ==
--- NOTE | 2019-06-11 12:13 | PET ---
Radionucleotide PET scan with CT attenuation correction HISTORY: Lung cancer. Abnormal CT scan. Restaging. COMPARISON: CT chest 05/18/2019. Previous PET exam 04/04/2018. FINDINGS: Physiologic uptake of radiotracer throughout the enteric system and along each urinary trac t. Postoperative changes right upper lobe now present. No focal mass evident. Associated with the suture row and compressive atelectasis at the posterior aspect of the right upper lobe, maximum SUV a ssociated with uptake is 3.5. Throughout each lung, prominent emphysematous changes are apparent. Patchy areas of slightly increased but less than hypermetabolic activity are present with the appeara nce of recurrent inflammation. A focal nonmass-like area of parenchymal nodularity along the posterior medial aspect of the right lower chest shows a maximum SUV of 4.3 (2.5 on the previous PET exam over one year ago). No hypermetabolic parenchymal masses are reliably demonstrated. The precarinal lymph node measured on recent CT shows a maximum SUV of 2.2. A tiny focus of activity at the prevascular space, that may represent a nonenlarged lymph node, shows maximal measured be of 2.7 (2.8 on the prior PET scan) No abnormal uptake is apparent at the subcarinal level in region of measured lymph node on recent CT. IMPRESSION: Postoperative changes. Uptake within each lung favored to be associated with areas of rec urrent inflammation. No hypermetabolic masses are evident. No abnormal activity associated with the lymph nodes of concern on recent CT chest exam.
== END 2019-06-11 08:56 | disposition home or self-care (01) ==
LOC: PET 08:55
PROVIDERS: ATTEND Internal Medicine Hematology & Oncology
DX: C34.90 Malignant neoplasm of unspecified part of unspecified bronchus or lung (principal); R93.7 Abnormal findings on diagnostic imaging of other parts of musculoskeletal system; Z98.890 Other specified postprocedural states
CPT/HCPCS: 78815; A9552

== ENCOUNTER 2019-11-18 09:19 | Outpatient (CLI) | payer MEDICARE ==
--- NOTE | 2019-11-18 10:45 | CT ---
EXAM: CT of the chest with contrast HISTORY: Adenocarcinoma of the lung status post right lobectomy COMPARISON: 05/18/2019; PET/CT 06/11/2019 TECHNIQUE: Multiple contiguous axial images were obtained in a CT the chest with contrast. Coronal an d sagittal reformats were performed. FINDINGS: HEART: Normal in size without focal cardiac abnormality. A stent graft is seen within the aorta. MEDIASTINUM: There are stable mildly prominent precarinal and subcarinal lymph nodes. Calcifications in the coronary arteries. LUNGS: The patient appears be status post right upper lobectomy. Calcifications are seen in the right apex. Emphysematous changes are seen throughout the lungs. Crescentic areas of increased density with central bulla are seen in both lower lobes, unchanged. These are the areas that are hypermetabol ic on PET/CT. PLEURAL SPACE: No pneumothorax or pleural effusion. CHEST WALL SOFT TISSUES: Unremarkable OSSEOUS STRUCTURES: Degenerative changes in the spine. VISUALIZED SUBDIAPHRAGMATIC STRUCTURES: 4.5 cm right renal cyst. IMPRESSION: 1. Stable slightly prominent mediastinal lymph nodes. These were PET negative 2. Postsurgical changes in the right upper lobe 3. Areas of crescentic increased density with central bulla in the lower lobes may represent radiatio n therapy changes or postinflammatory changes.
== END 2019-11-18 09:20 | disposition home or self-care (01) ==
LOC: BICCT 09:19
PROVIDERS: ATTEND Internal Medicine
DX: C34.90 Malignant neoplasm of unspecified part of unspecified bronchus or lung (principal); J44.9 Chronic obstructive pulmonary disease, unspecified; G47.33 Obstructive sleep apnea (adult) (pediatric); R91.8 Other nonspecific abnormal finding of lung field; Z98.890 Other specified postprocedural states
CPT/HCPCS: 71260

== ENCOUNTER 2020-06-02 11:34 | Emergency (ER) | payer MEDICARE ==
[2020-06-02] MEDS ORDERED: Lidocaine 1% (PF) 30 ML VIAL ONE (12:08)
--- NOTE | 2020-06-02 12:14 | RAD ---
RIGHT MIDDLE FINGER 3 VIEWS: HISTORY: Middle finger pain. The patient fell. FINDINGS: There is dislocation at the PIP joint. Arthritic changes of the finger are noted. IMPRESSION: Proximal interphalangeal joint dislocation. POS: AH
--- NOTE | 2020-06-02 13:45 | RAD ---
RADIOGRAPH RIGHT THIRD DIGIT THREE VIEWS: 06/02/20 at 12:44 p.m. HISTORY: 75-year-old male with acute traumatic pain due to acute dislocation of right middle finger. COMPARISON: 06/02/20 at 11:55 a.m. FINDINGS: The previously dislocated third PIP joint is now located. There is soft tissue swelling, but no evide nce of fracture. IMPRESSION: Successful reduction of the acute, traumatic dislocation of the right third proximal interphalangeal joint. POS: [facility]
== END 2020-06-02 13:19 | disposition home or self-care (01) ==
LOC: ERS 11:34
DX: S63.282A Dislocation of proximal interphalangeal joint of right middle finger, initial encounter (principal); E78.5 Hyperlipidemia, unspecified; E78.00 Pure hypercholesterolemia, unspecified; Z79.899 Other long term (current) drug therapy; W17.89XA Other fall from one level to another, initial encounter
CPT/HCPCS: 26770; J2001

== ENCOUNTER 2020-12-12 11:10 | Outpatient (CLI) | payer MEDICARE | END 2020-12-12 11:11 | disposition home or self-care (01) | LOC: BICCT 11:10 | PROVIDERS: ATTEND Internal Medicine Critical Care Medicine | DX: Z12.2 Encounter for screening for malignant neoplasm of respiratory organs (principal); Z87.891 Personal history of nicotine dependence; Z85.118 Personal history of other malignant neoplasm of bronchus and lung | CPT/HCPCS: 71271 ==

== ENCOUNTER 2021-06-13 06:14 | Day surgery (SDC) | payer MEDICARE ==
[2021-06-13] MEDS ORDERED: ceFAZolin 2 GM/DEX 5% 100 ML BAG ONE (06:23)
[2021-06-13] MEDS ORDERED: SUGAMMADEX SODIUM 200 MG/2 ML VIAL ONE (07:00)
[2021-06-13] MEDS ORDERED: Fentanyl 100 MCG/2 ML VIAL ONE (07:00)
[2021-06-13] MEDS ORDERED: Xylocaine 1% w/ Epi 1:100K 10 ML VIAL ONE (08:36)
[2021-06-13] MEDS ORDERED: Bupivacaine 0.25% 10 ML VIAL ONE (08:36)
[2021-06-13] MEDS ORDERED: Ondansetron PF 4 MG/2 ML Vial ONE (09:00)
[2021-06-13] MEDS ORDERED: Glycopyrrolate 0.2 MG/ML 5 ML SYRINGE ONE (09:00)
[2021-06-13] MEDS ORDERED: PROPOFOL 200 MG/20 ML VIAL ONE (09:00)
[2021-06-13] MEDS ORDERED: Labetalol HCl 100 MG/20 ML VIAL ONE (09:00)
[2021-06-13] MEDS ORDERED: ePHEDrine 50 MG/ML VIAL ONE (09:00)
[2021-06-13] MEDS ORDERED: Lidocaine 1% PF 5 ML VIAL ONE (09:00)
[2021-06-13] MEDS ORDERED: Rocuronium Bromide 10 MG/ML (10ML VIAL) ONE (09:00)
== END 2021-06-13 12:35 | disposition home or self-care (01) ==
LOC: SDC 06:14
PROVIDERS: ATTEND Surgery
PROC: 0YUA4JZ Supplement Bilateral Inguinal Region with Synthetic Substitute, Percutaneous Endoscopic Approach (ICD-10-PCS; principal; 2021-06-13)
DX: K40.91 Unilateral inguinal hernia, without obstruction or gangrene, recurrent (principal); K40.90 Unilateral inguinal hernia, without obstruction or gangrene, not specified as recurrent; E78.5 Hyperlipidemia, unspecified; I10 Essential (primary) hypertension; K21.9 Gastro-esophageal reflux disease without esophagitis; F17.290 Nicotine dependence, other tobacco product, uncomplicated; M19.90 Unspecified osteoarthritis, unspecified site; Z79.899 Other long term (current) drug therapy; Z88.5 Allergy status to narcotic agent; Z88.8 Allergy status to other drugs, medicaments and biological substances; Z90.2 Acquired absence of lung [part of]
CPT/HCPCS: 93005; 93010; J2405; J2704; J3010; J3490; S0020

== ENCOUNTER 2021-12-13 09:31 | Outpatient (CLI) | payer MEDICARE | END 2021-12-13 09:32 | disposition home or self-care (01) | LOC: BICCT 09:31 | PROVIDERS: ATTEND Otolaryngology | DX: C34.91 Malignant neoplasm of unspecified part of right bronchus or lung (principal); R91.1 Solitary pulmonary nodule; J43.2 Centrilobular emphysema; J98.4 Other disorders of lung; Z90.2 Acquired absence of lung [part of] | CPT/HCPCS: 71250 ==

== ENCOUNTER 2022-06-11 15:31 | Outpatient (CLI) | payer MEDICARE | END 2022-06-11 15:32 | disposition home or self-care (01) | LOC: SCSRAD 15:31 | PROVIDERS: ATTEND Family Medicine | DX: R04.2 Hemoptysis (principal); R05.9 Cough, unspecified; R09.02 Hypoxemia; Z85.118 Personal history of other malignant neoplasm of bronchus and lung | CPT/HCPCS: 71046 ==